=== PATIENT | female | born 1955 | race Hispanic/Latino ===

== ENCOUNTER 2021-08-15 13:50 | Inpatient (IN) | payer OTHER, MEDICARE ==
[~2021-08-15] VITALS: Ht 170.2 cm; Wt 90.0 kg
[2021-08-15 15:12] LABS: BASOPHILS % (AUTO) 0.6 % (0.0-5.0); EOSINOPHILS % (AUTO) 1.1 % (0.0-8.0); HEMATOCRIT 42.8 % (36-48); LYMPHOCYTES % (AUTO) 18.5 % (21.0-51.0); MEAN CORPUSCULAR HEMOGLOBIN 28.4 pg (27.0-33.0); MEAN CORPUSCULAR HGB CONC 32.9 g/dL (32.0-36.0); MEAN CORPUSCULAR VOLUME 86.3 fL (79-99); MONOCYTES % (AUTO) 6.9 % (3.0-13.0); NEUTROPHILS % (AUTO) 72.6 % (40.0-77.0); PLATELET COUNT (AUTO) 386 K/uL (130-400); RED BLOOD CELL COUNT(AUTO) 4.96 MIL/uL (4.00-5.50); RED CELL DISTRIBUTION WIDTH 14.1 % (11.0-15.5)
[2021-08-15 15:23] LABS: CREATININE 0.8 mg/dL (0.5-1.5); POTASSIUM 3.8 mmol/L (3.5-5.1)
[2021-08-15 15:28] LABS: ALBUMIN 3.8 g/dL (3.5-5.0); BILIRUBIN,TOTAL 1.6 mg/dL (0.2-1.0); TOTAL PROTEIN, SERUM 8.7 g/dL (6.0-8.3)
[2021-08-15 15:34] LABS: APPEARANCE,URINE CLOUDY (CLEAR); BILIRUBIN,URINE NEGATIVE (NEGATIVE); COLOR,URINE YELLOW (YELLOW); GLUCOSE, URINE (UA) NEGATIVE (NEGATIVE); KETONES,URINE 40 mg/dL (NEGATIVE); LEUKOCYTE ESTERASE ,URINE SMALL (NEGATIVE); NITRATE,URINE POSITIVE (NEGATIVE); OCCULT BLOOD,URINE TRACE-INTACT (NEGATIVE); PH,URINE 5.5 (5.0-8.0); PROTEIN,URINE TRACE mg/dL (NEGATIVE); UROBILINOGEN,URINE 0.2 mg/dL (0.2-1.0)
[2021-08-15 15:54] LABS: BACTERIA,URINE Moderate /HPF (None Seen)
[2021-08-15 15:55] LABS: MUCUS,URINE Moderate LPF (None Seen); SQUAMOUS EPITHELIAL CELL,UR Few /HPF (0-2)
[2021-08-15 15:56] LABS: HYALINE CASTS, URINE 0-1 /LPF (0-1 /LPF)
[2021-08-15] MEDS: ZOSYN 3.375GM +NS 50ML IV SCH (18:38)
[2021-08-15] MEDS ORDERED: ACETAMINOPHEN 325 MG TAB PO ONE (19:00)
[2021-08-15] MEDS ORDERED: ACETAMINOPHEN 500 MG TABLET ONE (20:34)
[2021-08-16] MEDS ORDERED: GLUCAGON 1MG KIT 1 MG ML IM PRN (02:00)
[2021-08-16] MEDS: ZOSYN 3.375GM +NS 50ML IV SCH (02:00)
[2021-08-16] MEDS ORDERED: DEXTROSE 50%-WATER 50 ML DISP.SYRIN IV PRN (02:00)
[2021-08-16] MEDS: 0.9%NACL 1000ML 1,000 ML IV SCH ×2 (03:25→17:00)
[2021-08-16 06:12] LABS: BASOPHILS % (AUTO) 0.5 % (0.0-5.0); HEMATOCRIT 40.7 % (36-48); LYMPHOCYTES % (AUTO) 22.7 % (21.0-51.0); MEAN CORPUSCULAR HEMOGLOBIN 28.8 pg (27.0-33.0); MEAN CORPUSCULAR HGB CONC 33.4 g/dL (32.0-36.0); MONOCYTES % (AUTO) 8.2 % (3.0-13.0); NEUTROPHILS % (AUTO) 66.3 % (40.0-77.0); PLATELET COUNT (AUTO) 376 K/uL (130-400); RED BLOOD CELL COUNT(AUTO) 4.73 MIL/uL (4.00-5.50); WHITE BLOOD COUNT (AUTO) 9.8 K/uL (4.8-10.8)
[2021-08-16] MEDS: ONDANSETRON 4MG INJ IVP PRN (06:26)
[2021-08-16 06:33] LABS: ALBUMIN 3.4 g/dL (3.5-5.0); BILIRUBIN,TOTAL 1.3 mg/dL (0.2-1.0); CREATININE 0.6 mg/dL (0.5-1.5); POTASSIUM 3.5 mmol/L (3.5-5.1); TOTAL PROTEIN, SERUM 7.9 g/dL (6.0-8.3)
[2021-08-16] MEDS: INSULIN R NPO SSI SQ SCH ×4 (07:30→20:19)
[2021-08-16 08:00] VITALS: BP 132/81
[2021-08-16 09:35] LABS: INR 1.03 (0.85-1.15); PROTHROMBIN TIME 11.2 SEC (9.6-11.6)
[2021-08-16 09:37] LABS: PARTIAL THROMBOPLASTIN TIME 26.4 SEC (26.3-35.5)
[2021-08-16] MEDS: MORPHINE 2 MG SYG IVP PRN ×2 (11:08→20:34)
[2021-08-16] MEDS: FAMOTIDINE 20MG VIAL IV SCH (11:09)
[2021-08-16] MEDS: HEPARIN 5,000 UNIT VIAL SQ SCH ×2 (11:18→18:51)
[2021-08-16 12:00] VITALS: BP 173/83
[2021-08-16] MEDS ORDERED: ZOSYN 3.375GM +NS 50ML IV SCH (13:00)
[2021-08-16 16:00] VITALS: BP 134/85
[2021-08-16] MEDS: ZOSYN 3.375GM+NS 50ML 50 ML IV SCH ×2 (17:03→19:28)
[2021-08-16] MEDS ORDERED: IOHEXOL 350 MG/ML 100ML INFUS..BTL IV ONE (17:41)
[2021-08-16] MEDS ORDERED: NARA1TAB2 PO ×2 (17:59→18:03)
[2021-08-16] MEDS ORDERED: METF-444 PO (17:59)
[2021-08-16] MEDS ORDERED: ACET-66 PO (17:59)
[2021-08-16] MEDS ORDERED: ATOR20TA65 PO (17:59)
[2021-08-16] MEDS ORDERED: RAMI2.5C55 PO (17:59)
[2021-08-16] MEDS ORDERED: ESCI5TAB16 PO (17:59)
[2021-08-16] MEDS ORDERED: PANT20TA18 PO (17:59)
[2021-08-16] MEDS ORDERED: DOXY100T21 PO (17:59)
[2021-08-16 20:00] VITALS: BP 136/77
[2021-08-16] MEDS ORDERED: NARATRIPTAN HCL 1 MG PO PRN (23:00)
[2021-08-16] MEDS ORDERED: ACETAMINOPHEN 500 MG TABLET PO SCH (23:00)
[2021-08-17] VITALS (7 sets, daily range): BP systolic 128–150; BP diastolic 72–88
[2021-08-17] MEDS: MORPHINE 2 MG SYG IVP PRN ×2 (01:09→08:47)
[2021-08-17] MEDS: HEPARIN 5,000 UNIT VIAL SQ SCH ×3 (02:50→18:53)
[2021-08-17] MEDS: 0.9%NACL 1000ML 1,000 ML IV SCH ×2 (03:49→21:09)
[2021-08-17] MEDS: ZOSYN 3.375GM+NS 50ML 50 ML IV SCH ×3 (03:50→21:09)
[2021-08-17 04:40] LABS: HEMATOCRIT 38.7 % (36-48); MEAN CORPUSCULAR HEMOGLOBIN 28.1 pg (27.0-33.0); MEAN CORPUSCULAR HGB CONC 32.6 g/dL (32.0-36.0); MEAN CORPUSCULAR VOLUME 86.4 fL (79-99); RED BLOOD CELL COUNT(AUTO) 4.48 MIL/uL (4.00-5.50); RED CELL DISTRIBUTION WIDTH 13.9 % (11.0-15.5); WHITE BLOOD COUNT (AUTO) 9.4 K/uL (4.8-10.8)
[2021-08-17] MEDS ORDERED: TRAMADOL HCL 50 MG TABLET ONE (04:53)
[2021-08-17 04:54] LABS: ALBUMIN 3.2 g/dL (3.5-5.0); BILIRUBIN,TOTAL 0.9 mg/dL (0.2-1.0); CREATININE 0.6 mg/dL (0.5-1.5); POTASSIUM 3.1 mmol/L (3.5-5.1); TOTAL PROTEIN, SERUM 7.5 g/dL (6.0-8.3)
[2021-08-17] MEDS ORDERED: HYDROCODONE/ACETAMINOPHEN 5/325 MG TAB PO PRN (05:00)
[2021-08-17] MEDS ORDERED: TRAMADOL HCL 50 MG TABLET PO ONE (05:00)
[2021-08-17] MEDS: ONDANSETRON 4MG INJ IVP PRN (05:13)
[2021-08-17] MEDS: INSULIN R NPO SSI SQ SCH ×4 (05:40→21:00)
[2021-08-17] MEDS: FAMOTIDINE 20MG VIAL IV SCH (08:40)
[2021-08-17] MEDS: ATORVASTATIN 20 MG TABLET PO SCH (08:41)
[2021-08-17] MEDS: LISINOPRIL 5 MG TABLET PO SCH (08:41)
[2021-08-17] MEDS: CITALOPRAM 20 MG TABLET PO SCH (08:41)
[2021-08-17] MEDS ORDERED: NON-FORMULARY MEDICATION 1 EACH (Pantoprazole Sodium 20 MG) PO SCH (09:00)
[2021-08-17] MEDS: NARATRIPTAN HCL 1 MG PO SCH (09:00)
[2021-08-17] MEDS ORDERED: POTASSIUM CHLORIDE 10% ELIXIR 20 MEQ/15 ML UDCUP PO PRN (11:30)
[2021-08-17] MEDS ORDERED: POTASSIUM CHLORIDE 20MEQ/100ML 100 ML IV PRN (11:30)
[2021-08-17] MEDS ORDERED: LIDOCAINE HCL-MPF 1% 2ML VIAL IV PRN (11:30)
[2021-08-17] MEDS: KCL 20 MEQ ERTAB PO PRN ×2 (21:17→23:23)
[2021-08-18 04:05] VITALS: BP 145/76
[2021-08-18] MEDS ORDERED: HEPARIN 5,000 UNIT VIAL SQ SCH (05:00)
[2021-08-18] MEDS: ZOSYN 3.375GM+NS 50ML 50 ML IV SCH (05:17)
[2021-08-18] MEDS: INSULIN R NPO SSI SQ SCH ×2 (05:59→11:30)
[2021-08-18] MEDS: METOCLOPRAMIDE 10 MG/2 ML VIAL IVP SCH ×2 (06:37→11:43)
[2021-08-18] MEDS: 0.9%NACL 1000ML 1,000 ML IV SCH (07:50)
[2021-08-18 08:16] VITALS: BP 133/64
[2021-08-18] MEDS: ATORVASTATIN 20 MG TABLET PO SCH (08:25)
[2021-08-18] MEDS: CITALOPRAM 20 MG TABLET PO SCH (08:25)
[2021-08-18] MEDS: FAMOTIDINE 20MG VIAL IV SCH (08:25)
[2021-08-18] MEDS: LISINOPRIL 5 MG TABLET PO SCH (08:29)
[2021-08-18] MEDS: NARATRIPTAN HCL 1 MG PO SCH (09:00)
[2021-08-18 12:44] VITALS: BP 141/72
[2021-08-18] MEDS ORDERED: LEVO500T90 PO (13:02)
== END 2021-08-18 13:55 | disposition home or self-care (01) | DRG 690 ==
LOC: EDH 13:50 → OBSVTOIN 19:20 → EDHIP 19:20 → 3DH 08-16 08:25
PROVIDERS: ADMIT Internal Medicine Pulmonary Disease; ATTEND Internal Medicine Pulmonary Disease
DX: N12 Tubulo-interstitial nephritis, not specified as acute or chronic (principal); B96.1 Klebsiella pneumoniae [K. pneumoniae] as the cause of diseases classified elsewhere; R16.0 Hepatomegaly, not elsewhere classified; E66.9 Obesity, unspecified; M19.90 Unspecified osteoarthritis, unspecified site; G43.909 Migraine, unspecified, not intractable, without status migrainosus; E11.9 Type 2 diabetes mellitus without complications; I10 Essential (primary) hypertension; E78.5 Hyperlipidemia, unspecified; K76.9 Liver disease, unspecified; D18.09 Hemangioma of other sites; E78.00 Pure hypercholesterolemia, unspecified; Z68.31 Body mass index [BMI] 31.0-31.9, adult; Z87.891 Personal history of nicotine dependence; Z90.710 Acquired absence of both cervix and uterus
CPT/HCPCS: 36415; 74176; 74178; 76705; 80053; 81001; 82378; 82948; 83690; 83735; 84132; 85025; 85027; 85610; 85730; 86316; 87040; 87077; 87088; 87186; G0378; J1644; J2405; J2543; J2765; J3480; J3490; J7030; Q9967

== ENCOUNTER → 2022-01-19 | Outpatient (CLI) | payer OTHER, MEDICARE ==
[~2022-01-19] MED LIST: ACET-66 PO; ATOR20TA65 PO; ESCI5TAB16 PO; LEVO500T90 PO; METF-444 PO; NARA1TAB2 PO; PANT20TA18 PO; RAMI2.5C55 PO
== END | disposition home or self-care (01) ==
LOC: RAH 08:26
PROVIDERS: ATTEND Internal Medicine Critical Care Medicine
DX: K76.0 Fatty (change of) liver, not elsewhere classified (principal); K44.9 Diaphragmatic hernia without obstruction or gangrene; K86.89 Other specified diseases of pancreas; J98.11 Atelectasis; M47.815 Spondylosis without myelopathy or radiculopathy, thoracolumbar region
CPT/HCPCS: 74150

== ENCOUNTER → 2022-03-24 | Outpatient (CLI) | payer OTHER, MEDICARE ==
[~2022-03-24] MED LIST changes: +IOHEXOL-350 75 ML VIAL IV ONE
== END | disposition home or self-care (01) ==
LOC: RAH 10:02
PROVIDERS: ATTEND Internal Medicine Critical Care Medicine
DX: D18.03 Hemangioma of intra-abdominal structures (principal); R93.89 Abnormal findings on diagnostic imaging of other specified body structures; K76.9 Liver disease, unspecified; K76.0 Fatty (change of) liver, not elsewhere classified; R91.8 Other nonspecific abnormal finding of lung field; N28.1 Cyst of kidney, acquired; K44.9 Diaphragmatic hernia without obstruction or gangrene
CPT/HCPCS: 74160; Q9967

== ENCOUNTER → 2022-12-30 | Outpatient (CLI) | payer OTHER ==
[~2022-12-30] MED LIST changes: -IOHEXOL-350 75 ML VIAL IV ONE; +LEVO-70 PO; -LEVO500T90 PO
== END | disposition home or self-care (01) ==
LOC: OIH 13:36
PROVIDERS: ATTEND Internal Medicine Critical Care Medicine
DX: Z13.6 Encounter for screening for cardiovascular disorders (principal); R93.1 Abnormal findings on diagnostic imaging of heart and coronary circulation; J98.4 Other disorders of lung; Z82.49 Family history of ischemic heart disease and other diseases of the circulatory system
CPT/HCPCS: 75571

== ENCOUNTER → 2023-02-12 | Outpatient (CLI) | payer OTHER, MEDICARE ==
[~2023-02-12] MED LIST changes: +REGADENOSON 0.4 MG/5 ML PF SYG IVP ONE
== END | disposition home or self-care (01) ==
LOC: CANSCHCLI → SHCH 08:45
PROVIDERS: ATTEND Internal Medicine
DX: R93.1 Abnormal findings on diagnostic imaging of heart and coronary circulation (principal); Z82.49 Family history of ischemic heart disease and other diseases of the circulatory system
CPT/HCPCS: 78452; 96374; 93017; J2785; A9500 ×2

== ENCOUNTER → 2023-03-05 | Outpatient (CLI) | payer OTHER, MEDICARE ==
[~2023-03-05] MED LIST changes: -REGADENOSON 0.4 MG/5 ML PF SYG IVP ONE
== END | disposition home or self-care (01) ==
LOC: CANSCHCLI → SHCH 13:52
PROVIDERS: ATTEND Internal Medicine
DX: I10 Essential (primary) hypertension (principal); R01.1 Cardiac murmur, unspecified; E11.9 Type 2 diabetes mellitus without complications; E78.5 Hyperlipidemia, unspecified
CPT/HCPCS: 93306

== ENCOUNTER 2024-05-13 06:11 | Day surgery (SDC) | payer OTHER, MEDICARE ==
[2024-05-08 11:45] LABS: BASOPHILS # (AUTO) 0.07 K/uL (0.00-0.20); BASOPHILS % (AUTO) 0.7 % (0.0-5.0); EOSINOPHILS # (AUTO) 0.22 K/uL (0.00-0.70); EOSINOPHILS % (AUTO) 2.3 % (0.0-8.0); HEMATOCRIT 42.2 % (36-48); IMMATURE GRANULOCYTE ABSOLUTE 0.03 K/uL (0-1); LYMPHOCYTES # (AUTO) 1.5 K/uL (1.0-4.8); MEAN CORPUSCULAR HEMOGLOBIN 26.6 pg (27.0-33.0); MEAN CORPUSCULAR VOLUME 83.1 fL (79-99); MONOCYTES # (AUTO) 0.5 K/uL (0.1-1.0); MONOCYTES % (AUTO) 5.5 % (3.0-13.0); NEUTROPHILS # (AUTO) 7.2 K/uL (1.8-7.7); NEUTROPHILS % (AUTO) 75.2 % (40.0-77.0); PLATELET COUNT (AUTO) 353 K/uL (130-400); RED BLOOD CELL COUNT(AUTO) 5.08 MIL/uL (4.00-5.50); RED CELL DISTRIBUTION WIDTH 16.4 % (11.0-15.5); WHITE BLOOD COUNT (AUTO) 9.6 K/uL (4.8-10.8)
[2024-05-08 11:54] VITALS: BP 143/81; PULSE 67; RESP 18
[2024-05-08 12:09] LABS: BILIRUBIN,TOTAL 1.5 mg/dL (0.2-1.0); CREATININE 0.6 mg/dL (0.5-1.0); POTASSIUM 3.3 mmol/L (3.5-5.1); TOTAL PROTEIN, SERUM 7.4 g/dL (6.0-8.3)
[2024-05-08 12:39] LABS: INR 0.99 (0.85-1.15); PROTHROMBIN TIME 10.7 SEC (9.6-11.6)
[2024-05-08 12:41] LABS: PARTIAL THROMBOPLASTIN TIME 25.3 SEC (26.3-35.5)
[~2024-05-13] VITALS: Ht 170.2 cm; Wt 75.0 kg
[2024-05-13] VITALS (12 sets, daily range): BP systolic 117–147; BP diastolic 57–84; PULSE 64–92; RESP 13–17
[~2024-05-13 06:11] MED LIST changes: -ACET-66 PO; +AEC81 PO; +AMOX1TAB16 PO; -ATOR20TA65 PO; +CELE-125 PO; +EMPA25TA PO; -ESCI5TAB16 PO; -LEVO-70 PO; -NARA1TAB2 PO; +OMEP20TA20 PO; -PANT20TA18 PO; -RAMI2.5C55 PO; +RAMI2.5C57 PO; +ROSU20TA73 PO
[2024-05-13] MEDS ORDERED: acetaMINOPHEN 1,000 MG/100 ML VIAL IV ONE (06:55)
[2024-05-13] MEDS ORDERED: FAMOTIDINE 20MG VIAL IV ONE (06:56)
[2024-05-13] MEDS ORDERED: FENTANYL CITRATE PF 50 MCG/1 ML 2ML VIAL ONE (07:04)
[2024-05-13] MEDS ORDERED: LIDOCAINE PF 100MG/5ML (2%) SYRINGE 5ML ONE (07:04)
[2024-05-13] MEDS ORDERED: PROPOFOL 10 MG/ML 20ML VIAL IV ONE (07:04)
[2024-05-13] MEDS ORDERED: ROCURONIUM BROMIDE 10MG/1ML 5ML VL ONE (07:05)
[2024-05-13] MEDS: LACTATED RINGERS 1000ML 1,000 ML IV ONE (07:28)
[2024-05-13] MEDS ORDERED: LACTATED RINGERS 1000ML 1,000 ML IV ONE (07:57)
[2024-05-13] MEDS ORDERED: CLINDAMYCIN IVPB 600MG/50ML 50 ML IV ONE (07:58)
[2024-05-13] MEDS ORDERED: ONDANSETRON 4MG INJ ONE (07:58)
[2024-05-13] MEDS ORDERED: DEXAMETHASONE SOD PHOSPHATE 10MG/ML 1ML VIAL ONE (07:58)
[2024-05-13 08:04] LABS: CREATININE 0.5 mg/dL (0.5-1.0); POTASSIUM 3.7 mmol/L (3.5-5.1)
[2024-05-13] MEDS: MEROPENEM 1 GM VIAL ONE (08:12)
[2024-05-13] MEDS: BUPIvacaine/PF 0.25% 30ML VIAL IJ ONE (08:17)
[2024-05-13] MEDS: LIDOCAINE 1%-EPI 1:100,000 20 ML VIAL ONE (08:17)
[2024-05-13] MEDS ORDERED: GLYCOPYRROLATE 0.2 MG/ML 5 ML VIAL ONE (08:30)
[2024-05-13] MEDS ORDERED: NEOSTIGMINE METHYLSULFATE 1MG/ML IV ONE (08:30)
[2024-05-13] MEDS ORDERED: SUGAMMADEX SODIUM 200 MG/2 ML VIAL IV ONE (08:43)
[2024-05-13] MEDS: ONDANSETRON 4MG INJ IVP ONE (09:52)
[2024-05-13] MEDS ORDERED: SCOPOLAMINE HYDROBROMIDE 1 EACH ADH..PATCH TD ONE (09:55)
[2024-05-13] MEDS: SCOPOLAMINE HYDROBROMIDE 1 EACH ADH..PATCH TD SCH (10:00)
== END 2024-05-13 10:15 | disposition home or self-care (01) ==
LOC: DAH 06:11
PROVIDERS: ATTEND Surgery
DX: K64.2 Third degree hemorrhoids (principal); A63.0 Anogenital (venereal) warts; K92.1 Melena; I10 Essential (primary) hypertension; E11.9 Type 2 diabetes mellitus without complications; K21.9 Gastro-esophageal reflux disease without esophagitis; E66.9 Obesity, unspecified; F32.A Depression, unspecified; M19.90 Unspecified osteoarthritis, unspecified site; Z79.84 Long term (current) use of oral hypoglycemic drugs; Z79.82 Long term (current) use of aspirin; Z79.899 Other long term (current) drug therapy; Z90.710 Acquired absence of both cervix and uterus; Z98.890 Other specified postprocedural states
CPT/HCPCS: 80053; 85025; 85610; 85730; 36415 ×2; 93005; 45541; 46922; 46946; 80048; 82948 ×2; A6260; A4663; J7120 ×3; J3490 ×5; J3010; J1100; J0665; J2001; J2704; J2405 ×2; J2710; J2185; A4649 ×2; A4930; A4215; A4223; A4213; A4222; A4221; A4335

== ENCOUNTER → 2024-10-22 | Outpatient (CLI) | payer OTHER, MEDICARE ==
[~2024-10-22] MED LIST changes: -ROSU20TA73 PO; +ROSU20TA98 PO
--- NOTE | 2024-10-22 13:53 | HMCIMG ---
CT HEAD/BRAIN W/O CONTRAST HISTORY: Migraine headaches COMPARISON: None TECHNIQUE: Multiple sequential axial images of the head were obtained from the base of the skull through vertex. Patient was not given contrast through intravenous route. FINDINGS: The ventricles and extraventricular CSF spaces are nondilated for patient's age. There is no midline shift, mass effect or herniation. Extensive choroid plexus calcifications are seen. No acute intracranial bleed is seen. Visualized portion of the paranasal sinuses are grossly within normal limits. IMPRESSION: 1. No acute intracranial bleed is seen. CT was performed with one or more following dose reduction techniques: automated exposure control, adjustment of the mA and kv according to patient's size, or use of a iterative reconstruction technique.
== END | disposition home or self-care (01) ==
LOC: RAH 12:10
PROVIDERS: ATTEND Internal Medicine Critical Care Medicine
DX: G43.909 Migraine, unspecified, not intractable, without status migrainosus (principal); G93.89 Other specified disorders of brain
CPT/HCPCS: 70450